=== PATIENT | female | born 1960 | race Caucasian/White ===

== ENCOUNTER → 2016-10-04 | Outpatient (CLI) | payer BC ==
[~2016-10-04] MED LIST: ADVAIR IH; ALBUTEROL0.09 MG/A1 IH; ASPIRIN 32325 MG/TAB PO; CLARITIN D TAB1 TAB PO; DULERA1 AR1 IH; FERROUS SULFATE65 MG PO; FLONASE NASAL S16 GM NS; LASIX 20MG TABL20 MG PO; MOBIC 7.5MG7.5 MG PO; NORCO 325 MG-51 TAB PO; PERCOCET 325 MG1 TA2 PO; PRILOSEC 20MG20 MG PO; SINGULAIR 110 MG/TAB PO; SYNTHROID0.05 MG/TA PO; ULTRAM 50MG TAB50 MG PO; ZYMAR IO
== END ==
LOC: MC.RAD 07:00
DX: Z12.31 Encounter for screening mammogram for malignant neoplasm of breast (principal); R92.1 Mammographic calcification found on diagnostic imaging of breast

== ENCOUNTER 2016-12-04 17:50 | Emergency (ER) | payer BC ==
[~2016-12-04] VITALS: Ht 165.1 cm; Wt 92.3 kg
[~2016-12-04 17:50] MED LIST changes: -MOBIC 7.5MG7.5 MG PO; -PERCOCET 325 MG1 TA2 PO; -PRILOSEC 20MG20 MG PO; -ULTRAM 50MG TAB50 MG PO
[2016-12-04 17:55] VITALS: BP 155/76; TEMP 98.5
[2016-12-04] MEDS ORDERED: PRILOSEC 20MG20 MG PO (18:29)
[2016-12-04] MEDS ORDERED: MOBIC 7.5MG7.5 MG PO (18:30)
[2016-12-04] MEDS ORDERED: PERCOCET 325 MG1 TA2 PO (19:05)
[2016-12-04] MEDS ORDERED: ULTRAM 50MG TAB50 MG PO (19:05)
[2016-12-04 20:16] VITALS: PULSE 74
== END 2016-12-04 20:59 | disposition home or self-care (01) ==
LOC: COL.ER 17:50
DX: M25.562 Pain in left knee (principal)
CPT/HCPCS: J1170; J1885; L1830

== ENCOUNTER → 2017-10-30 | Outpatient (CLI) | payer BC ==
[~2017-10-30] MED LIST changes: +MOBIC 7.5MG7.5 MG PO; +PERCOCET 325 MG1 TA2 PO; +PRILOSEC 20MG20 MG PO; +ULTRAM 50MG TAB50 MG PO
== END ==
LOC: MC.RAD 15:00
DX: Z12.31 Encounter for screening mammogram for malignant neoplasm of breast (principal)

== ENCOUNTER → 2019-08-05 | Outpatient (CLI) | payer BC | LOC: MC.RAD 16:57 | DX: Z12.31 Encounter for screening mammogram for malignant neoplasm of breast (principal) ==

== ENCOUNTER → 2020-02-11 | Outpatient (CLI) | payer BC ==
[2020-02-11 18:14] LABS: BASO % 0.4 % (0.0-2.0); EOS # 0.1 (0.0-0.7); EOS % 2.2 % (0-4.0); GRAN # 2.9 (1.4-6.5); HEMATOCRIT 37.3 % (37.0-47.0); HEMOGLOBIN 12.1 g/dl (12.5-16.0); LYMPH # 1.6 (1.2-3.4); LYMPH % 31.4 % (20.0-51.0); MEAN CELL VOLUME 89 fl (80.0-100.0); MEAN CORPUSCULAR HEMOGLOBIN 29 pg (27.0-31.0); MEAN CORPUSCULAR HGB CONC 32 g/dl (33.0-37.0); MONO # 0.4 (0.1-0.6); MONO % 8.6 % (1.7-9.3); PLATELET COUNT 260 K/mm3 (130-400); RED BLOOD COUNT 4.17 M/mm3 (4.10-5.30); REDCELL DISTRIBUTION WIDTH-CV 13.2 % (11.5-14.5)
[2020-02-11 18:25] LABS: ALBUMIN 4.6 gm/dL (3.5-5.0); BILIRUBIN,TOTAL 0.2 mg/dL (0.0-1.0); CALCIUM 9.4 mg/dL (8.4-10.2); CREATININE, serum 0.61 (0.52-1.25)
== END ==
LOC: COL.LAB 17:50
PROVIDERS: Family Medicine
DX: R60.0 Localized edema (principal)

== ENCOUNTER → 2020-08-28 | Outpatient (CLI) | payer BC | LOC: MC.RAD 13:25 | DX: Z12.31 Encounter for screening mammogram for malignant neoplasm of breast (principal) ==

== ENCOUNTER → 2021-10-01 | Outpatient (CLI) | payer BC | LOC: MC.RAD 07:00 | DX: Z12.31 Encounter for screening mammogram for malignant neoplasm of breast (principal) ==

== ENCOUNTER → 2022-01-25 | Outpatient (CLI) | payer BC | LOC: COL.LAB 16:21 | DX: E11.59 Type 2 diabetes mellitus with other circulatory complications (principal) ==

== ENCOUNTER → 2022-08-02 | Outpatient (CLI) | payer BC ==
[2022-08-02 13:02] LABS: BASO % 0.1 % (0.0-2.0); EOS # 0.1 K/mm3 (0.0-0.7); EOS % 0.4 % (0.0-4.0); GRAN # 8.6 K/mm3 (1.4-6.5); GRAN % 63.8 % (42.2-75.2); HEMATOCRIT 40.1 % (37.0-47.0); HEMOGLOBIN 13.1 g/dl (12.5-16.0); LYMPH # 3.9 K/mm3 (1.2-3.4); LYMPH % 28.8 % (20.0-51.0); MEAN CELL VOLUME 91 fl (80.0-100.0); MEAN CORPUSCULAR HEMOGLOBIN 30 pg (27-31); MEAN CORPUSCULAR HGB CONC 33 g/dl (33.0-37.0); MEAN PLATELET VOLUME 9.1 fl (7.4-10.4); MONO # 0.8 K/mm3 (0.1-0.6); MONO % 6.2 % (1.7-9.3); PLATELET COUNT 291 K/mm3 (130-400); RED BLOOD COUNT 4.39 M/mm3 (4.10-5.30)
[2022-08-02 13:05] LABS: URINE APPEARANCE Clear (CLEAR/HAZY); URINE BLOOD Negative (NEGATIVE); URINE COLOR Yellow (YELLOW); URINE GLUCOSE Negative (NEGATIVE); URINE KETONE Negative (NEGATIVE); URINE NITRATE Negative (NEGATIVE); URINE PROTEIN(semi-quant) Negative (NEGATIVE); URINE UROBILINOGEN 0.2 E.U/dL (0.2-1.0)
[2022-08-02 13:06] LABS: COLLECTION METHOD CLEAN CATCH
[2022-08-02 13:07] LABS: SQUAMOUS EPITHELIAL None Seen /hpf (0-10); URINE BACTERIA None Seen /hpf (NONE SEEN); URINE RBC 0-2 /hpf (0-2)
[2022-08-02 13:18] LABS: BILIRUBIN,TOTAL 0.4 mg/dL (0.2-1.2); CHOLESTEROL RISK RATIO 2.6; CREATININE, serum 0.81 mg/dL (0.57-1.11); POTASSIUM 3.4 mmol/L (3.5-4.5); TOTAL PROTEIN 7.8 gm/dL (6.2-8.1)
[2022-08-02 13:38] LABS: THYROID STIMULATING HORMONE 1.215 uIU/mL (0.350-4.940)
== END ==
LOC: COL.LAB 12:32
PROVIDERS: Family Medicine
DX: Z00.00 Encounter for general adult medical examination without abnormal findings (principal); Z13.29 Encounter for screening for other suspected endocrine disorder; Z13.220 Encounter for screening for lipoid disorders; E11.9 Type 2 diabetes mellitus without complications; E55.9 Vitamin D deficiency, unspecified

== ENCOUNTER → 2023-08-05 | Outpatient (CLI) | payer BC ==
[2023-08-05 16:07] LABS: COLLECTION METHOD CLEAN CATCH
[2023-08-05 16:10] LABS: BASO % 0.4 % (0.0-2.0); EOS # 0.1 K/mm3 (0.0-0.7); EOS % 1.6 % (0.0-4.0); GRAN # 4.4 K/mm3 (1.4-6.5); GRAN % 59.2 % (42.2-75.2); HEMATOCRIT 39.5 % (37.0-47.0); LYMPH # 2.3 K/mm3 (1.2-3.4); LYMPH % 30.6 % (20.0-51.0); MEAN CELL VOLUME 91 fl (80.0-100.0); MEAN CORPUSCULAR HEMOGLOBIN 30 pg (27-31); MEAN CORPUSCULAR HGB CONC 33 g/dl (33.0-37.0); MEAN PLATELET VOLUME 9.5 fl (7.4-10.4); MONO # 0.6 K/mm3 (0.1-0.6); MONO % 7.9 % (1.7-9.3); PLATELET COUNT 242 K/mm3 (130-400); RED BLOOD COUNT 4.36 M/mm3 (4.10-5.30); REDCELL DISTRIBUTION WIDTH-CV 12.8 % (11.5-14.5)
[2023-08-05 16:19] LABS: PH 6.5 (5.0-8.5); URINE APPEARANCE CLOUDY (CLEAR/HAZY); URINE BLOOD NEGATIVE (NEGATIVE); URINE COLOR YELLOW (YELLOW); URINE GLUCOSE NEGATIVE (NEGATIVE); URINE KETONE NEGATIVE (NEGATIVE); URINE NITRATE NEGATIVE (NEGATIVE); URINE PROTEIN(semi-quant) NEGATIVE (NEGATIVE); URINE UROBILINOGEN 0.2 E.U/dL (0.2-1.0)
[2023-08-05 16:34] LABS: ALBUMIN 3.9 gm/dL (3.4-4.8); BILIRUBIN,TOTAL 0.4 mg/dL (0.2-1.2); CALCIUM 9.7 mg/dL (8.4-10.2); CHOLESTEROL RISK RATIO 2.7; CREATININE, serum 0.86 mg/dL (0.57-1.11); TOTAL PROTEIN 7.2 gm/dL (6.2-8.1)
[2023-08-05 16:56] LABS: THYROID STIMULATING HORMONE 1.289 uIU/mL (0.350-4.940)
== END ==
LOC: COL.LAB 15:36
DX: Z00.00 Encounter for general adult medical examination without abnormal findings (principal); Z13.29 Encounter for screening for other suspected endocrine disorder; Z13.220 Encounter for screening for lipoid disorders; E11.9 Type 2 diabetes mellitus without complications

== ENCOUNTER → 2023-11-13 | Outpatient (CLI) | payer BC | LOC: ZCOL.LAB 18:17 | DX: E11.59 Type 2 diabetes mellitus with other circulatory complications (principal); E55.9 Vitamin D deficiency, unspecified ==

== ENCOUNTER → 2023-11-28 | Outpatient (CLI) | payer BC | LOC: MC.RAD 08:09 | DX: Z12.31 Encounter for screening mammogram for malignant neoplasm of breast (principal) ==